=== PATIENT | female | born 1990 | race Caucasian/White ===

== ENCOUNTER 2024-10-15 18:32 | Inpatient (IN) | payer OTHER, SELFPAY ==
[2024-10-15] VITALS (71 sets, daily range): BP systolic 144–180; BP diastolic 30–114; PULSE 40–105; RESP 13–22; TEMP 36.2–36.4; O2SAT 76–100; BMI 30.9
--- NOTE | 2024-10-15 19:35 | WPDANESEPPF ---
Anes - Initial Pre Proc Eval Date/Time: 10/15/24 19:35 Surgeon: Sadiq Noe MD Pre Op Diagnosis: leaking, contractions Patient Data Age: 33 Gender: F Height: Weight: Last Vital Signs Pulse Ox 100 10/15/24 19:28 Allergies Allergy/AdvReac Type Severity Reaction Status Date / Time codeine Allergy Unknown Verified 04/28/15 10:05 Penicillins Allergy Unknown Verified 04/28/15 10:05 Patient hx anesthesia problems: none Family hx anesthesia problems: none Results Review: All pre-operative results and documents have been reviewed as part of the pre-operative evaluation. [facility] Family History Family History Grandparent Family history of lupus erythematosus Family history of mental disorder Mother Family history of lupus erythematosus Family history of mental disorder Social History Social History Alcohol intake: never Anes - Eval Final PreProcedure Day of Procedure 10/15/24 19:35 Patient weight: obese Heart: regular rate and rhythm Lungs: decreased breath sounds Airway: Mallampati scale class II and special considerations poor dentition Neurological: alert and oriented ASA classification: III Emergent: yes Anesthetic plan: proceed Anesthesia type and monitoring: regional spinal and standard monitoring Results Review: All pre-operative results and documents have been reviewed as part of the pre-operative evaluation. Informed Consent: The patient's anesthetic plan and its attendant risks and benefits were discussed with the patient/family/POA. Questions were solicited and answers provided to the satisfaction of the patient/family/POA.
[2024-10-15 19:45] LABS: Hematocrit 34.7 % (37.0-47.0); Hemoglobin 11.3 g/dL (12.0-15.0); Mean Corpuscular HGB Conc 32.6 g/dl (32-36); Mean Corpuscular Hemoglobin 26.4 pg (26-34); Mean Corpuscular Volume 81.1 fl (80-100); Mean Platelet Volume 10.6 fl (7.4-10.4); Platelet Count Result 313 k/mm3 (150-375); Red Blood Count 4.28 M/mm3 (4.2-5.4); Red Cell Distribution Width 13.9 % (11.5-14.5); White Blood Count 17.7 K/mm3 (4.5-10.0)
[2024-10-15] MEDS: ceFAZolin 2 GM/D5W 50 ML 2 GM/50 ML BAG IVPB (19:48)
[2024-10-15] MEDS: FAMOTIDINE 20 MG/2 ML VIAL IV PUSH (19:50)
[2024-10-15] MEDS: ONDANSETRON INJ 4 MG/2 ML VIAL IV PUSH (19:50)
[2024-10-15 19:55] LABS: INR 0.9
[2024-10-15 19:56] LABS: Partial Thromboplastin Time 27.8 Seconds (22.3-36.8)
[2024-10-15 19:57] LABS: Fibrinogen 548 mg/dl (215-510)
[2024-10-15 20:00] LABS: D Dimer 1.33 ug/mL (<0.48)
[2024-10-15 20:34] LABS: Hepatitis B Surface Antigen Negative (Negative); Rubella IgG Antibody 81.1 IU/ML
[2024-10-15 20:39] LABS: HIV 1/2 Ab P24 Ag Result Negative (Negative)
--- NOTE | 2024-10-15 20:54 | PM.IMHP ---
H&P: HPI History of Present Illness Date/Time: 10/15/24 20:54 Chief Complaint: Leaking Narrative: 33 y/o unknown gestation, no care presented to L and D with c/o LOF. ROM plus pos. She has had 2 prior c-sections and is currently on Saboxone. No records available. tracing without accels initially when she presented. BP 150/90. tracing with 9 min bradycardia and then repetitive moderate to severe variables while being on hands/knee position. Cervix changed to 2/90%. PIH and abruption labs ordered. She was recommended for stat section due to nonreassuring tracing. She denied severe headache or scotomata or RUQ pain. None of her children reside with her. Review of Systems Review of Systems: All systems reviewed & are unremarkable except as noted in HPI and below Constitutional: Constitutional: Reports no additional constitutional complaints and Denies headache(s) Eyes: Eyes: Denies spots in vision ENT: Reports system reviewed and no additional complaints, except as documented and Denies headache(s) Cardiovascular: Cardiovascular: Denies chest pain and Denies dyspnea Respiratory: Respiratory: Denies dyspnea Gastrointestinal: Gastrointestinal: Reports no additional gastrointestinal complaints Genitourinary: Genitourinary: Reports amenorrhea Musculoskeletal: Musculoskeletal: Reports no additional musculoskeletal complaints Integumentary/Breasts: Skin/Breast: Denies breast mass and Denies rash Neurologic: Denies headache(s) Psychiatric: Psychiatric: Reports no additional psychiatric complaints [facility] Family History Family History Grandparent Family history of lupus erythematosus Family history of mental disorder Mother Family history of lupus erythematosus Family history of mental disorder Social History Social History Alcohol intake: never Meds Home Medications and Allergies Allergies Allergy/AdvReac Type Severity Reaction Status Date / Time codeine Allergy Unknown Verified 04/28/15 10:05 Penicillins Allergy Unknown Verified 04/28/15 10:05 Vital Signs Vital Signs - 24 hr 10/15/24 19:20 10/15/24 19:25 10/15/24 19:28 Pulse Oximetry 97 98 100 10/15/24 19:37 10/15/24 19:41 10/15/24 19:46 Pulse Oximetry 100 100 99 Exam Const: General: no acute distress Eyes: General: appearance normal, both eyes and all related structures Resp: Effort & Inspection: normal respiratory effort Cardio: Rate: regular rate GI: Other: Gravid no fundal tenderness no right upper quadrant pain Skin: General skin exam: no rashes or lesions noted Neuro: Cognition (Neuro): normal cognition Extrem: General: normal to inspection Psych: Mental Status: mental status grossly normal H&P: Results Labs Labs: Short CBC 10/15/24 10/15/24 10/15/24 Range/Units 19:27 19:27 19:27 WBC 17.7 H Cancelled (4.5-10.0) K/mm3 Hgb 11.3 L Cancelled (12.0-15.0) g/dL Hct 34.7 L (37.0-47.0) % Plt Count (150-375) k/mm3 10/15/24 10/15/24 Range/Units 19: 19:27 WBC (4.5-10.0) K/mm3 Hgb (12.0-15.0) g/dL Hct Cancelled (37.0-47.0) % Plt Count 313 Cancelled (150-375) k/mm3 Assessment and Plan Assessment and plan (1) distress: Status: Acute Assessment and Plan: Recommend emergency section. Discussed risk benefit of repeat section and risk of continuing . She agreed to emergency cesrean section. (2) No care in current : Code(s): O09.30 - Supervision of with insufficient care, unspecified trimester Status: Acute Assessment and Plan: Will obtain new ob labs/abruption labs/UDS. (3) Elevated blood pressure reading: Code(s): R03.0 - Elevated blood-pressure reading, without diagnosis of hypertension Status: Acute Assessment and Plan: [facility] labs. Will continue to monitor and await lab results.
[2024-10-15 21:06] LABS: Magnesium 1.6 mg/dL (1.6-2.3)
--- NOTE | 2024-10-15 21:12 | W.PM.OBCSD ---
OB - Delivery Note Procedure Delivery date: 10/15/24 Pre-op diagnosis: No Care, Non-Reassuring Status and Other (Elevted blood pressures) Post-op Diagnosis: Same Delivery monitor: External FHT Prior to decision for section, [facility] labor guidelines were considered and discussed with the patient and staff. Decision made to proceed with the section.: Yes Procedure Performed: Repeat Surgeon: Sadiq Noe MD Anesthesia type: General Description of Procedure/Findings: male apgars 8,9, thick meconium, normal uterus fallopian tubes and ovaries. After informed consent, risks and benefits of the procedure was discussed with the patient. The patient was taken to the operating room where she was placed in the dorsal lithotomy position. FHT 120, variables. She was prepped and draped in sterile fashion. She was intubated and a Pfannenstiel skin incision was made with a scalpel and carried through to the underlying layer of fascia. The fascia was then nicked in the midline, extending bilaterally. The fascia was dissected off the rectus muscles bluntly and sharply, superiorly and inferiorly. The rectus muscles were in the midline, and peritoneum was identified and entered bluntly. The pelvic organs were visualized. The bladder blade was then inserted. The vesicouterine peritoneum was identified and entered and the bladder flap was created digitally. The low transverse uterine incision was then made with the scalpel and large amount of thick amniotic fluid noted when amniotic sac entered. The incision was extended with bilateral index fingers in a crescent-shaped fashion. The head was delivered and the rest of the was delivered The nose and mouth suctioned. The cord was clamped twice and cut. The infant was then handed off to the awaiting pediatric staff. The placenta was then delivered manually. The uterine cavity was sponge curetted. The uterus was then exteriorized. The uterine incision was then closed with 0 vicryl in a running locked fashion. A second layer of 0 vicryl was used in an imbricating fashion. Hemostasis noted. Posterior cul de sac irrigated and cleared of debris. The uterus was then returned to the abdomen. Bilateral gutters were cleared off all clots and debris. The uterine incision was noted to be hemostatic. Interceed placed on uterine incision . The muscle bellies were inspected and noted to be hemostatic. The subfascial layer was noted to be hemostatic, and the fascia was closed with 0 Vicryl in a running fashion x2. The subcutaneous layer was irrigated and then approximated with 3-0 Vicryl in a subcutaneous fashion. The skin was closed with selvin. Dermabond applied at incision. Miraplex dressing. All instruments, needle, and lap counts were correct x3. The patient was taken to the recovery room in stable condition. Specimen: Yes (placenta and cord) Estimated Blood Loss: 1,045 Drains: No Packing: No Pathology: Yes (placenta and cord) Complications: No immediate complications Condition: Stable Disposition: [place] Baby Date of : 10/15/24 Infant gender: Male presentation: vertex Placenta delivery description: Manual Removal Cord Vessel Description: 3 Vessels score one minute: 8 score five minutes: 9
[2024-10-15 21:22] LABS: Syphilis IgG/IgM Antibody Negative (Negative)
--- NOTE | 2024-10-15 21:36 | PC.NURSE ---
Dr. Noe at nurses station, updated on severe blood pressures, orders received to administer 4 g magnesium bolus and 2 g maintenance dose for twenty-four hours.
--- NOTE | 2024-10-15 21:45 | PC.NURSE ---
Dr. Noe at nurses station, update on blood pressures, orders received to hold magnesium and administer 20 mg IV labetalol.
[2024-10-15] MEDS: OXYTOCIN 30 UNITS/NS 500 ML 30 UNITS/500 ML BAG 125 UNITS IV CONT (21:46)
[2024-10-15] MEDS: LABETALOL HCL INJ 100 MG/20 ML VIAL 20 MG IV PUSH (21:48)
[2024-10-15] MEDS: HYDROmorphone HCL INJ (*CRX) 1 MG/ML SYR 0.5 MG IV PUSH ×2 (21:50→22:14)
--- NOTE | 2024-10-15 22:08 | PM.OBPNVD ---
OB - PN: Subj Subjective Date/time seen: 10/15/24 22:08 Interval history: Persistant severe range blood pressures. Decreased initially with Labetolol and then returned severe range. Pain control is an issue with her saboxone use. 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 Will start Magnesium for seizure prophylaxis for severe range blood pressure. Labs reviewed normal. P/C ratio pending. OB - PN: Obj Data Labs 10/15/24 19:27 Labs: Laboratory Results - last 24 hr 10/15/24 10/15/24 10/15/24 19:26 19:27 19:27 WBC 17.7 H Cancelled RBC 4.28 Hgb Hct MCV MCH MCHC RDW Plt Count MPV Immature Gran % (Auto) Neut % (Auto) Lymph % (Auto) [place] % (Auto) Eos % (Auto) Baso % (Auto) Lymph # (Auto) [place] # (Auto) Eos # (Auto) Baso # (Auto) Abs Immat Gran (auto) Absolute Neuts (auto) Absolute Nucleated RBC Nucleated RBC % % Immature Plt Fraction PT INR APTT Fibrinogen D-Dimer Magnesium Syphilis IgG/IgM Ab Negative Hep Bs Antigen HIV 1&2 Ab/P24 Ag 4thGn Rubella IgG Antibody Blood Type O Positive Antibody Screen Negative 10/15/24 10/15/24 10/15/24 19: 19:27 19:27 WBC RBC Cancelled Hgb 11.3 L Cancelled Hct 34.7 L Cancelled MCV 81.1 MCH MCHC RDW Plt Count MPV Immature Gran % (Auto) Neut % (Auto) Lymph % (Auto) [place] % (Auto) Eos % (Auto) Baso % (Auto) Lymph # (Auto) [place] # (Auto) Eos # (Auto) Baso # (Auto) Abs Immat Gran (auto) Absolute Neuts (auto) Absolute Nucleated RBC Nucleated RBC % % Immature Plt Fraction PT INR APTT Fibrinogen D-Dimer Magnesium Syphilis IgG/IgM Ab Hep Bs Antigen HIV 1&2 Ab/P24 Ag 4thGn Rubella IgG Antibody Blood Type Antibody Screen 10/15/24 10/15/24 10/15/24 19:27 19:27 19:27 WBC RBC Hgb Hct MCV Cancelled MCH 26.4 Cancelled MCHC 32.6 Cancelled RDW 13.9 Plt Count MPV Immature Gran % (Auto) Neut % (Auto) Lymph % (Auto) [place] % (Auto) Eos % (Auto) Baso % (Auto) Lymph # (Auto) [place] # (Auto) Eos # (Auto) Baso # (Auto) Abs Immat Gran (auto) Absolute Neuts (auto) Absolute Nucleated RBC Nucleated RBC % % Immature Plt Fraction PT INR APTT Fibrinogen D-Dimer Magnesium Syphilis IgG/IgM Ab Hep Bs Antigen HIV 1&2 Ab/P24 Ag 4thGn Rubella IgG Antibody Blood Type Antibody Screen 10/15/24 10/15/24 10/15/24 19:27 19:27 19:27 WBC RBC Hgb Hct MCV MCH MCHC RDW Cancelled Plt Count 313 Cancelled MPV 10.6 H Cancelled Immature Gran % (Auto) Cancelled Neut % (Auto) Cancelled Lymph % (Auto) Cancelled [place] % (Auto) Cancelled Eos % (Auto) Cancelled Baso % (Auto) Cancelled Lymph # (Auto) Cancelled [place] # (Auto) Cancelled Eos # (Auto) Cancelled Baso # (Auto) Cancelled Abs Immat Gran (auto) Cancelled Absolute Neuts (auto) Cancelled Absolute Nucleated RBC Cancelled Nucleated RBC % Cancelled % Immature Plt Fraction Cancelled PT 13.0 INR 0.9 APTT 27.8 Fibrinogen 548 H D-Dimer 1.33 H Magnesium 1.6 Syphilis IgG/IgM Ab Hep Bs Antigen Negative HIV 1&2 Ab/P24 Ag 4thGn Negative Rubella IgG Antibody 81.1 Blood Type Antibody Screen OB - PN A/P Time Spent With Patient Time: Total time spent is greater than 50% in coordination of care (as documented) at patient's floor/unit and/or counseling patient:
[2024-10-15] MEDS: MAGNESIUM SULF 4 GM/WATER100ML 4 GM/100 ML BAG IVPB (22:23)
[2024-10-15] MEDS: LACTATED RINGERS 1,000 ML 75 ML IV CONT (22:25)
[2024-10-15] MEDS: MAGNESIUM SULF 20GM/WATER500ML 500 ML 50 MG IV CONT (22:55)
[2024-10-15] MEDS: LORazepam INJ (*CRX) 2 MG/ML VIAL 1 MG IV PUSH (23:25)
--- NOTE | 2024-10-15 23:31 | PC.NURSE ---
2310- RN contacted MD in regards to pts request for anxiety medication. Orders received.
[2024-10-16] VITALS (63 sets, daily range): BP systolic 121–166; BP diastolic 75–130; PULSE 43–106; RESP 12–22; TEMP 36.2–36.9; O2SAT 89–99; BMI 30.2
[2024-10-16 03:00] LABS: Barbiturate Screen Urine Negative (Negative); Benzodiazepines Screen Urine Positive (Negative); Cannabinoid Screen Urine Negative (Negative); Cocaine Screen Urine Negative (Negative); Methadone Screen Urine Negative (Negative); Opiate Screen Urine Positive (Negative); Phencyclidine Screen Urine Negative (Negative)
--- NOTE | 2024-10-16 03:07 | OBPPTRN ---
Patient transferred to post room # 286 via stretcher. Support person present. Oriented to unit, room, information board, rooming in, admission packet and security measures. Patient verbalizes understanding.
--- NOTE | 2024-10-16 03:07 | OBPPTRN ---
Patient transferred to post room # via ( ). Support person present. Oriented to unit, room, information board, rooming in, admission packet and security measures. Patient verbalizes understanding.
[2024-10-16 03:23] LABS: Amphetamine Screen Urine Positive (Negative)
[2024-10-16] MEDS: ACETAMINOPHEN 325 MG TABLET 650 MG PO (03:30)
[2024-10-16] MEDS: KETOROLAC 15 MG/ML VIAL (*BKC) IV PUSH ×4 (03:30→22:55)
[2024-10-16] MEDS: LIDOCAINE 5% PATCH 1 PATCH TRANSDERM (03:35)
[2024-10-16] MEDS: ONDANSETRON INJ 4 MG/2 ML VIAL IV PUSH (04:00)
[2024-10-16] MEDS: HYDROmorphon 0.2MG/ML PCA(*CRX 6 MG/30 ML PCA.VIAL 1.5 MG IV CONT (09:00)
--- NOTE | 2024-10-16 09:03 | PM.OBPNVD ---
OB - PN: Subj Subjective Date/time seen: 10/16/24 09:03 Interval history: She is sleeping, arousable. She denied pain. She reports flatus. Denies headache or scotomata. OB - PN: Obj Data Labs 10/15/24 19:27 10/16/24 02:37 Labs: Laboratory Results - last 24 hr 10/15/24 10/15/24 10/15/24 19:26 19:27 19:27 WBC 17.7 H Cancelled RBC 4.28 Hgb Hct MCV MCH MCHC RDW Plt Count MPV Immature Gran % (Auto) Neut % (Auto) Lymph % (Auto) Wilcox % (Auto) Eos % (Auto) Baso % (Auto) Lymph # (Auto) Wilcox # (Auto) Eos # (Auto) Baso # (Auto) Abs Immat Gran (auto) Absolute Neuts (auto) Absolute Nucleated RBC Nucleated RBC % % Immature Plt Fraction PT INR APTT Fibrinogen D-Dimer Sodium Potassium Chloride Carbon Dioxide Anion Gap BUN Creatinine Estim Creat Clear Calc Estimated GFR Glucose Uric Acid Calcium Magnesium Total Bilirubin AST ALT Alkaline Phosphatase Total Protein Albumin Urine Opiates Screen Urine Methadone Screen Ur Barbiturates Screen Ur Phencyclidine Scrn Ur Amphetamine Screen U Benzodiazepines Scrn Urine Cocaine Screen U Cannabinoids Screen Syphilis IgG/IgM Ab Negative Hep Bs Antigen HIV 1&2 Ab/P24 Ag 4thGn Rubella IgG Antibody Blood Type O Positive Antibody Screen Negative 10/15/24 10/15/24 10/15/24 19:27 19:27 19:27 WBC RBC Cancelled Hgb 11.3 L Cancelled Hct 34.7 L Cancelled MCV 81.1 MCH MCHC RDW Plt Count MPV Immature Gran % (Auto) Neut % (Auto) Lymph % (Auto) Wilcox % (Auto) Eos % (Auto) Baso % (Auto) Lymph # (Auto) Wilcox # (Auto) Eos # (Auto) Baso # (Auto) Abs Immat Gran (auto) Absolute Neuts (auto) Absolute Nucleated RBC Nucleated RBC % % Immature Plt Fraction PT INR APTT Fibrinogen D-Dimer Sodium Potassium Chloride Carbon Dioxide Anion Gap BUN Creatinine Estim Creat Clear Calc Estimated GFR Glucose Uric Acid Calcium Magnesium Total Bilirubin AST ALT Alkaline Phosphatase Total Protein Albumin Urine Opiates Screen Urine Methadone Screen Ur Barbiturates Screen Ur Phencyclidine Scrn Ur Amphetamine Screen U Benzodiazepines Scrn Urine Cocaine Screen U Cannabinoids Screen Syphilis IgG/IgM Ab Hep Bs Antigen HIV 1&2 Ab/P24 Ag 4thGn Rubella IgG Antibody Blood Type Antibody Screen 10/15/24 10/15/24 10/15/24 19:27 19:27 19:27 WBC RBC Hgb Hct MCV Cancelled MCH 26.4 Cancelled MCHC 32.6 Cancelled RDW 13.9 Plt Count MPV Immature Gran % (Auto) Neut % (Auto) Lymph % (Auto) Wilcox % (Auto) Eos % (Auto) Baso % (Auto) Lymph # (Auto) Wilcox # (Auto) Eos # (Auto) Baso # (Auto) Abs Immat Gran (auto) Absolute Neuts (auto) Absolute Nucleated RBC Nucleated RBC % % Immature Plt Fraction PT INR APTT Fibrinogen D-Dimer Sodium Potassium Chloride Carbon Dioxide Anion Gap BUN Creatinine Estim Creat Clear Calc Estimated GFR Glucose Uric Acid Calcium Magnesium Total Bilirubin AST ALT Alkaline Phosphatase Total Protein Albumin Urine Opiates Screen Urine Methadone Screen Ur Barbiturates Screen Ur Phencyclidine Scrn Ur Amphetamine Screen U Benzodiazepines Scrn Urine Cocaine Screen U Cannabinoids Screen Syphilis IgG/IgM Ab Hep Bs Antigen HIV 1&2 Ab/P24 Ag 4thGn Rubella IgG Antibody Blood Type Antibody Screen 10/15/24 10/15/24 10/15/24 19:27 19:27 19:27 WBC RBC Hgb Hct MCV MCH MCHC RDW Cancelled Plt Count 313 Cancelled MPV 10.6 H Cancelled Immature Gran % (Auto) Cancelled Neut % (Auto) Cancelled Lymph % (Auto) Cancelled Wilcox % (Auto) Cancelled Eos % (Auto) Cancelled Baso % (Auto) Cancelled Lymph # (Auto) Cancelled Wilcox # (Auto) Cancelled Eos # (Auto) Cancelled Baso # (Auto) Cancelled Abs Immat Gran (auto) Cancelled Absolute Neuts (auto) Cancelled Absolute Nucleated RBC Cancelled Nucleated RBC % Cancelled % Immature Plt Fraction Cancelled PT 13.0 INR 0.9 APTT 27.8 Fibrinogen 548 H D-Dimer 1.33 H Sodium Potassium Chloride Carbon Dioxide Anion Gap BUN Creatinine Estim Creat Clear Calc Estimated GFR Glucose Uric Acid Calcium Magnesium 1.6 Total Bilirubin AST ALT Alkaline Phosphatase Total Protein Albumin Urine Opiates Screen Urine Methadone Screen Ur Barbiturates Screen Ur Phencyclidine Scrn Ur Amphetamine Screen U Benzodiazepines Scrn Urine Cocaine Screen U Cannabinoids Screen Syphilis IgG/IgM Ab Hep Bs Antigen Negative HIV 1&2 Ab/P24 Ag 4thGn Negative Rubella IgG Antibody 81.1 Blood Type Antibody Screen 10/16/24 10/16/24 10/16/24 02:37 02:37 02:37 WBC Cancelled Cancelled RBC Cancelled Cancelled Hgb Cancelled Hct MCV MCH MCHC RDW Plt Count MPV Immature Gran % (Auto) Neut % (Auto) Lymph % (Auto) Wilcox % (Auto) Eos % (Auto) Baso % (Auto) Lymph # (Auto) Wilcox # (Auto) Eos # (Auto) Baso # (Auto) Abs Immat Gran (auto) Absolute Neuts (auto) Absolute Nucleated RBC Nucleated RBC % % Immature Plt Fraction PT INR APTT Fibrinogen D-Dimer Sodium Potassium Chloride Carbon Dioxide Anion Gap BUN Creatinine Estim Creat Clear Calc Estimated GFR Glucose Uric Acid Calcium Magnesium Total Bilirubin AST ALT Alkaline Phosphatase Total Protein Albumin Urine Opiates Screen Urine Methadone Screen Ur Barbiturates Screen Ur Phencyclidine Scrn Ur Amphetamine Screen U Benzodiazepines Scrn Urine Cocaine Screen U Cannabinoids Screen Syphilis IgG/IgM Ab Hep Bs Antigen HIV 1&2 Ab/P24 Ag 4thGn Rubella IgG Antibody Blood Type Antibody Screen 10/16/24 10/16/24 10/16/24 02:37 02:37 02:37 WBC RBC Hgb Cancelled Hct Cancelled Cancelled MCV Cancelled Cancelled MCH Cancelled MCHC RDW Plt Count MPV Immature Gran % (Auto) Neut % (Auto) Lymph % (Auto) Wilcox % (Auto) Eos % (Auto) Baso % (Auto) Lymph # (Auto) Wilcox # (Auto) Eos # (Auto) Baso # (Auto) Abs Immat Gran (auto) Absolute Neuts (auto) Absolute Nucleated RBC Nucleated RBC % % Immature Plt Fraction PT INR APTT Fibrinogen D-Dimer Sodium Potassium Chloride Carbon Dioxide Anion Gap BUN Creatinine Estim Creat Clear Calc Estimated GFR Glucose Uric Acid Calcium Magnesium Total Bilirubin AST ALT Alkaline Phosphatase Total Protein Albumin Urine Opiates Screen Urine Methadone Screen Ur Barbiturates Screen Ur Phencyclidine Scrn Ur Amphetamine Screen U Benzodiazepines Scrn Urine Cocaine Screen U Cannabinoids Screen Syphilis IgG/IgM Ab Hep Bs Antigen HIV 1&2 Ab/P24 Ag 4thGn Rubella IgG Antibody Blood Type Antibody Screen 10/16/24 10/16/24 10/16/24 02:37 02:37 02:37 WBC RBC Hgb Hct MCV MCH Cancelled MCHC Cancelled Cancelled RDW Cancelled Cancelled Plt Count Cancelled MPV Immature Gran % (Auto) Neut % (Auto) Lymph % (Auto) Wilcox % (Auto) Eos % (Auto) Baso % (Auto) Lymph # (Auto) Wilcox # (Auto) Eos # (Auto) Baso # (Auto) Abs Immat Gran (auto) Absolute Neuts (auto) Absolute Nucleated RBC Nucleated RBC % % Immature Plt Fraction PT INR APTT Fibrinogen D-Dimer Sodium Potassium Chloride Carbon Dioxide Anion Gap BUN Creatinine Estim Creat Clear Calc Estimated GFR Glucose Uric Acid Calcium Magnesium Total Bilirubin AST ALT Alkaline Phosphatase Total Protein Albumin Urine Opiates Screen Urine Methadone Screen Ur Barbiturates Screen Ur Phencyclidine Scrn Ur Amphetamine Screen U Benzodiazepines Scrn Urine Cocaine Screen U Cannabinoids Screen Syphilis IgG/IgM Ab Hep Bs Antigen HIV 1&2 Ab/P24 Ag 4thGn Rubella IgG Antibody Blood Type Antibody Screen 10/16/24 10/16/24 10/16/24 02:37 02:37 02:37 WBC RBC Hgb Hct MCV MCH MCHC RDW Plt Count Cancelled MPV Cancelled Cancelled Immature Gran % (Auto) Cancelled Cancelled Neut % (Auto) Cancelled Lymph % (Auto) Wilcox % (Auto) Eos % (Auto) Baso % (Auto) Lymph # (Auto) Wilcox # (Auto) Eos # (Auto) Baso # (Auto) Abs Immat Gran (auto) Absolute Neuts (auto) Absolute Nucleated RBC Nucleated RBC % % Immature Plt Fraction PT INR APTT Fibrinogen D-Dimer Sodium Potassium Chloride Carbon Dioxide Anion Gap BUN Creatinine Estim Creat Clear Calc Estimated GFR Glucose Uric Acid Calcium Magnesium Total Bilirubin AST ALT Alkaline Phosphatase Total Protein Albumin Urine Opiates Screen Urine Methadone Screen Ur Barbiturates Screen Ur Phencyclidine Scrn Ur Amphetamine Screen U Benzodiazepines Scrn Urine Cocaine Screen U Cannabinoids Screen Syphilis IgG/IgM Ab Hep Bs Antigen HIV 1&2 Ab/P24 Ag 4thGn Rubella IgG Antibody Blood Type Antibody Screen 10/16/24 10/16/24 10/16/24 02:37 02:37 02:37 WBC RBC Hgb Hct MCV MCH MCHC RDW Plt Count MPV Immature Gran % (Auto) Neut % (Auto) Cancelled Lymph % (Auto) Cancelled Cancelled Wilcox % (Auto) Cancelled Cancelled Eos % (Auto) Cancelled Baso % (Auto) Lymph # (Auto) Wilcox # (Auto) Eos # (Auto) Baso # (Auto) Abs Immat Gran (auto) Absolute Neuts (auto) Absolute Nucleated RBC Nucleated RBC % % Immature Plt Fraction PT INR APTT Fibrinogen D-Dimer Sodium Potassium Chloride Carbon Dioxide Anion Gap BUN Creatinine Estim Creat Clear Calc Estimated GFR Glucose Uric Acid Calcium Magnesium Total Bilirubin AST ALT Alkaline Phosphatase Total Protein Albumin Urine Opiates Screen Urine Methadone Screen Ur Barbiturates Screen Ur Phencyclidine Scrn Ur Amphetamine Screen U Benzodiazepines Scrn Urine Cocaine Screen U Cannabinoids Screen Syphilis IgG/IgM Ab Hep Bs Antigen HIV 1&2 Ab/P24 Ag 4thGn Rubella IgG Antibody Blood Type Antibody Screen 10/16/24 10/16/24 10/16/24 02:37 02:37 02:37 WBC RBC Hgb Hct MCV MCH MCHC RDW Plt Count MPV Immature Gran % (Auto) Neut % (Auto) Lymph % (Auto) Wilcox % (Auto) Eos % (Auto) Cancelled Baso % (Auto) Cancelled Cancelled Lymph # (Auto) Cancelled Cancelled Wilcox # (Auto) Cancelled Eos # (Auto) Baso # (Auto) Abs Immat Gran (auto) Absolute Neuts (auto) Absolute Nucleated RBC Nucleated RBC % % Immature Plt Fraction PT INR APTT Fibrinogen D-Dimer Sodium Potassium Chloride Carbon Dioxide Anion Gap BUN Creatinine Estim Creat Clear Calc Estimated GFR Glucose Uric Acid Calcium Magnesium Total Bilirubin AST ALT Alkaline Phosphatase Total Protein Albumin Urine Opiates Screen Urine Methadone Screen Ur Barbiturates Screen Ur Phencyclidine Scrn Ur Amphetamine Screen U Benzodiazepines Scrn Urine Cocaine Screen U Cannabinoids Screen Syphilis IgG/IgM Ab Hep Bs Antigen HIV 1&2 Ab/P24 Ag 4thGn Rubella IgG Antibody Blood Type Antibody Screen 10/16/24 10/16/24 10/16/24 02:37 02:37 02:37 WBC RBC Hgb Hct MCV MCH MCHC RDW Plt Count MPV Immature Gran % (Auto) Neut % (Auto) Lymph % (Auto) Wilcox % (Auto) Eos % (Auto) Baso % (Auto) Lymph # (Auto) Wilcox # (Auto) Cancelled Eos # (Auto) Cancelled Cancelled Baso # (Auto) Cancelled Cancelled Abs Immat Gran (auto) Cancelled Absolute Neuts (auto) Absolute Nucleated RBC Nucleated RBC % % Immature Plt Fraction PT INR APTT Fibrinogen D-Dimer Sodium Potassium Chloride Carbon Dioxide Anion Gap BUN Creatinine Estim Creat Clear Calc Estimated GFR Glucose Uric Acid Calcium Magnesium Total Bilirubin AST ALT Alkaline Phosphatase Total Protein Albumin Urine Opiates Screen Urine Methadone Screen Ur Barbiturates Screen Ur Phencyclidine Scrn Ur Amphetamine Screen U Benzodiazepines Scrn Urine Cocaine Screen U Cannabinoids Screen Syphilis IgG/IgM Ab Hep Bs Antigen HIV 1&2 Ab/P24 Ag 4thGn Rubella IgG Antibody Blood Type Antibody Screen 10/16/24 10/16/24 10/16/24 02:37 02:37 02:37 WBC RBC Hgb Hct MCV MCH MCHC RDW Plt Count MPV Immature Gran % (Auto) Neut % (Auto) Lymph % (Auto) Wilcox % (Auto) Eos % (Auto) Baso % (Auto) Lymph # (Auto) Wilcox # (Auto) Eos # (Auto) Baso # (Auto) Abs Immat Gran (auto) Cancelled Absolute Neuts (auto) Cancelled Cancelled Absolute Nucleated RBC Cancelled Cancelled Nucleated RBC % Cancelled % Immature Plt Fraction PT INR APTT Fibrinogen D-Dimer Sodium Potassium Chloride Carbon Dioxide Anion Gap BUN Creatinine Estim Creat Clear Calc Estimated GFR Glucose Uric Acid Calcium Magnesium Total Bilirubin AST ALT Alkaline Phosphatase Total Protein Albumin Urine Opiates Screen Urine Methadone Screen Ur Barbiturates Screen Ur Phencyclidine Scrn Ur Amphetamine Screen U Benzodiazepines Scrn Urine Cocaine Screen U Cannabinoids Screen Syphilis IgG/IgM Ab Hep Bs Antigen HIV 1&2 Ab/P24 Ag 4thGn Rubella IgG Antibody Blood Type Antibody Screen 10/16/24 10/16/24 02:37 02:37 WBC RBC Hgb Hct MCV MCH MCHC RDW Plt Count MPV Immature Gran % (Auto) Neut % (Auto) Lymph % (Auto) Wilcox % (Auto) Eos % (Auto) Baso % (Auto) Lymph # (Auto) Wilcox # (Auto) Eos # (Auto) Baso # (Auto) Abs Immat Gran (auto) Absolute Neuts (auto) Absolute Nucleated RBC Nucleated RBC % Cancelled % Immature Plt Fraction Cancelled Cancelled PT INR APTT Fibrinogen D-Dimer Sodium Cancelled Potassium Cancelled Chloride Cancelled Carbon Dioxide Cancelled Anion Gap Cancelled BUN Cancelled Creatinine Cancelled Estim Creat Clear Calc Cancelled Estimated GFR Cancelled Glucose Cancelled Uric Acid Cancelled Calcium Cancelled Magnesium Total Bilirubin Cancelled AST Cancelled ALT Cancelled Alkaline Phosphatase Cancelled Total Protein Cancelled Albumin Cancelled Urine Opiates Screen Positive A Urine Methadone Screen Negative Ur Barbiturates Screen Negative Ur Phencyclidine Scrn Negative Ur Amphetamine Screen Positive A U Benzodiazepines Scrn Positive A Urine Cocaine Screen Negative U Cannabinoids Screen Negative Syphilis IgG/IgM Ab Hep Bs Antigen HIV 1&2 Ab/P24 Ag 4thGn Rubella IgG Antibody Blood Type Antibody Screen OB - PN A/P Assessment and Plan (1) Delivery by section: Status: Acute Assessment and Plan: POD1. She was encouraged to keep her PCS on. She took them off. Attempting pain control. She is sleeping. She is threatening leaving AMA.She is refusing labs. Informed her of risk of and stroke, seizures if she leaves. Will continue Dilaudid. Will bridge the POURING CRANE OPERATOR dose with oral and plan on discontinuing POURING CRANE OPERATOR. (2) Gestational hypertension: Code(s): O13.9 - Gestational [-induced] hypertension without significant proteinuria, unspecified trimester Status: Acute Assessment and Plan: Blood pressures labile. Continue Magnesium for 24 hour. Will start Labetolol. She has Ativan ordered. (3) Drug abuse: Code(s): F19.10 - Other psychoactive substance abuse, uncomplicated Status: Acute Assessment and Plan: UDS pos for meth and benzo. Social service consult. Time Spent With Patient Time: Total time spent is greater than 50% in coordination of care (as documented) at patient's floor/unit and/or counseling patient: Exam Const: General: comfortable and no acute distress Resp: Effort & Inspection: normal respiratory effort Auscultation: clear to auscultation bilaterally Cardio: Rate: regular rate GI: Other: hypoactive bowel sounds, incision intact, very small area of soiling on right of dressing Psych: Mental Status: mental status grossly normal Affect: normal affect
[2024-10-16] MEDS: MAGNESIUM SULF 20GM/WATER500ML 500 ML 50 MG IV CONT ×2 (09:09→19:01)
--- NOTE | 2024-10-16 09:43 | PC.NURSE ---
0720: RN went into room to turn on CALENDER ROLL OPERATOR with fellow RN, patient found to be sound asleep. 0725: RN notified MD Noe that patient was sleeping soundly and asked if pain pump needed to be continued. MD said she would arrive on unit shortly. 0810: MD arrived on unit and after further discussion decided to dc CALENDER ROLL OPERATOR and explained she would order PO pain medication for patient. 0820: This RN went in to check on patient and ask about pain medication and bring back in to be with patient, patient explained she was in alot of pain and was found to be moaning and crawling up the bed. Mother of pt explained she would be leaving and informed this RN to take infant back to nursery. 0830: Lab arrived to draw pts blood, while this RN prepared pain medication for patient. Patient refused to allow phlebotomy draw her blood and told maranda that she would like AMA papers. Tech informed this RN. 0835: This RN returned to room with pain medication of tylenol and toradol while waiting for oral medications to be ordered by physician. Patient refused tylenol and toradol and all other meds and again asked for AMA papers. This RN informed patient that I would speak to the doctor. 0840: informed of pts wishes to leave AMA. Physician went to speak with patient and patient continued to request AMA papers. 0845: This RN informed downstairs charge nurse of patient wishes. 0900: OB Combatant Diver Officer and downstairs charge nurse on unit to speak with patient and ask if she would stay if given the CALENDER ROLL OPERATOR. Patient agreed to stay if CALENDER ROLL OPERATOR was resumed. Combatant Diver Officer and charge started CALENDER ROLL OPERATOR and performed a mag assessment on patient.
--- NOTE | 2024-10-16 09:54 | WPDANLDPN2 ---
Anes-Prog Note L&D Date/Time: 10/16/24 09:54 Comfortable throughout: section Neuro status: Neuro function grossly intact. Cardiovascular status: normal Respiratory status: normal Airway patency: baseline Mental status: baseline Post-Op hydration status: normal (catheter intact) Vital Signs: Last Vital Signs Temp 36.4 C 10/16/24 07:50 Pulse 83 10/16/24 07:50 Resp 20 10/16/24 09:00 BP 121/75 10/16/24 07:50 Pulse Ox 96 10/16/24 07:50 O2 Del Method Room Air 10/16/24 03:30 Pain score (VAS): 8 I/O: Intake & Output 10/15/24 10/16/24 10/16/24 23:59 07:59 15:59 Intake Total 500 Output Total 1145 1400 Balance -1145 -1400 500 Post-procedural complaints: none Patient feedback: Patient satisfied with anesthetic care.
--- NOTE | 2024-10-16 09:54 | WPDANESPN ---
Anes - Prog Note Post-Op Date/Time: 10/16/24 09:54 Cardiovascular status: normal Respiratory status: normal Airway patency: baseline Mental status: baseline Post-Op hydration status: normal (catheter intact) Vital Signs: Last Vital Signs Temp 36.4 C 10/16/24 07:50 Pulse 83 10/16/24 07:50 Resp 20 10/16/24 09:00 BP 121/75 10/16/24 07:50 Pulse Ox 96 10/16/24 07:50 O2 Del Method Room Air 10/16/24 03:30 Pain Score (VAS): 8 incisional pain I/O: Intake & Output 10/15/24 10/16/24 10/16/24 23:59 07:59 15:59 Intake Total 500 Output Total 1145 1400 Balance -1145 -1400 500 Laboratory Tests 10/16/24 02:37 10/16/24 02:37 10/15/24 10/15/24 10/15/24 19:26 19:27 19:27 WBC 17.7 H Cancelled RBC 4.28 Hgb Hct MCV MCH MCHC RDW Plt Count MPV Immature Gran % (Auto) Neut % (Auto) Lymph % (Auto) [place] % (Auto) Eos % (Auto) Baso % (Auto) Lymph # (Auto) [place] # (Auto) Eos # (Auto) Baso # (Auto) Abs Immat Gran (auto) Absolute Neuts (auto) Absolute Nucleated RBC Nucleated RBC % % Immature Plt Fraction PT INR APTT Fibrinogen D-Dimer Sodium Potassium Chloride Carbon Dioxide Anion Gap BUN Creatinine Estim Creat Clear Calc Estimated GFR Glucose Uric Acid Calcium Magnesium Total Bilirubin AST ALT Alkaline Phosphatase Total Protein Albumin Urine Opiates Screen Urine Methadone Screen Ur Barbiturates Screen Ur Phencyclidine Scrn Ur Amphetamine Screen U Benzodiazepines Scrn Urine Cocaine Screen U Cannabinoids Screen Syphilis IgG/IgM Ab Negative Hep Bs Antigen HIV 1&2 Ab/P24 Ag 4thGn Rubella IgG Antibody Blood Type O Positive Antibody Screen Negative 10/15/24 10/15/24 10/15/24 19:27 19:27 19:27 WBC RBC Cancelled Hgb 11.3 L Cancelled Hct 34.7 L Cancelled MCV 81.1 MCH MCHC RDW Plt Count MPV Immature Gran % (Auto) Neut % (Auto) Lymph % (Auto) [place] % (Auto) Eos % (Auto) Baso % (Auto) Lymph # (Auto) [place] # (Auto) Eos # (Auto) Baso # (Auto) Abs Immat Gran (auto) Absolute Neuts (auto) Absolute Nucleated RBC Nucleated RBC % % Immature Plt Fraction PT INR APTT Fibrinogen D-Dimer Sodium Potassium Chloride Carbon Dioxide Anion Gap BUN Creatinine Estim Creat Clear Calc Estimated GFR Glucose Uric Acid Calcium Magnesium Total Bilirubin AST ALT Alkaline Phosphatase Total Protein Albumin Urine Opiates Screen Urine Methadone Screen Ur Barbiturates Screen Ur Phencyclidine Scrn Ur Amphetamine Screen U Benzodiazepines Scrn Urine Cocaine Screen U Cannabinoids Screen Syphilis IgG/IgM Ab Hep Bs Antigen HIV 1&2 Ab/P24 Ag 4thGn Rubella IgG Antibody Blood Type Antibody Screen 10/15/24 10/15/24 10/15/24 19:27 19:27 19:27 WBC RBC Hgb Hct MCV Cancelled MCH 26.4 Cancelled MCHC 32.6 Cancelled RDW 13.9 Plt Count MPV Immature Gran % (Auto) Neut % (Auto) Lymph % (Auto) [place] % (Auto) Eos % (Auto) Baso % (Auto) Lymph # (Auto) [place] # (Auto) Eos # (Auto) Baso # (Auto) Abs Immat Gran (auto) Absolute Neuts (auto) Absolute Nucleated RBC Nucleated RBC % % Immature Plt Fraction PT INR APTT Fibrinogen D-Dimer Sodium Potassium Chloride Carbon Dioxide Anion Gap BUN Creatinine Estim Creat Clear Calc Estimated GFR Glucose Uric Acid Calcium Magnesium Total Bilirubin AST ALT Alkaline Phosphatase Total Protein Albumin Urine Opiates Screen Urine Methadone Screen Ur Barbiturates Screen Ur Phencyclidine Scrn Ur Amphetamine Screen U Benzodiazepines Scrn Urine Cocaine Screen U Cannabinoids Screen Syphilis IgG/IgM Ab Hep Bs Antigen HIV 1&2 Ab/P24 Ag 4thGn Rubella IgG Antibody Blood Type Antibody Screen 10/15/24 10/15/24 10/15/24 19:27 19:27 19:27 WBC RBC Hgb Hct MCV MCH MCHC RDW Cancelled Plt Count 313 Cancelled MPV 10.6 H Cancelled Immature Gran % (Auto) Cancelled Neut % (Auto) Cancelled Lymph % (Auto) Cancelled [place] % (Auto) Cancelled Eos % (Auto) Cancelled Baso % (Auto) Cancelled Lymph # (Auto) Cancelled [place] # (Auto) Cancelled Eos # (Auto) Cancelled Baso # (Auto) Cancelled Abs Immat Gran (auto) Cancelled Absolute Neuts (auto) Cancelled Absolute Nucleated RBC Cancelled Nucleated RBC % Cancelled % Immature Plt Fraction Cancelled PT 13.0 INR 0.9 APTT 27.8 Fibrinogen 548 H D-Dimer 1.33 H Sodium Potassium Chloride Carbon Dioxide Anion Gap BUN Creatinine Estim Creat Clear Calc Estimated GFR Glucose Uric Acid Calcium Magnesium 1.6 Total Bilirubin AST ALT Alkaline Phosphatase Total Protein Albumin Urine Opiates Screen Urine Methadone Screen Ur Barbiturates Screen Ur Phencyclidine Scrn Ur Amphetamine Screen U Benzodiazepines Scrn Urine Cocaine Screen U Cannabinoids Screen Syphilis IgG/IgM Ab Hep Bs Antigen Negative HIV 1&2 Ab/P24 Ag 4thGn Negative Rubella IgG Antibody 81.1 Blood Type Antibody Screen 10/16/24 10/16/24 10/16/24 02:37 02:37 02:37 WBC Cancelled Cancelled RBC Cancelled Cancelled Hgb Cancelled Hct MCV MCH MCHC RDW Plt Count MPV Immature Gran % (Auto) Neut % (Auto) Lymph % (Auto) [place] % (Auto) Eos % (Auto) Baso % (Auto) Lymph # (Auto) [place] # (Auto) Eos # (Auto) Baso # (Auto) Abs Immat Gran (auto) Absolute Neuts (auto) Absolute Nucleated RBC Nucleated RBC % % Immature Plt Fraction PT INR APTT Fibrinogen D-Dimer Sodium Potassium Chloride Carbon Dioxide Anion Gap BUN Creatinine Estim Creat Clear Calc Estimated GFR Glucose Uric Acid Calcium Magnesium Total Bilirubin AST ALT Alkaline Phosphatase Total Protein Albumin Urine Opiates Screen Urine Methadone Screen Ur Barbiturates Screen Ur Phencyclidine Scrn Ur Amphetamine Screen U Benzodiazepines Scrn Urine Cocaine Screen U Cannabinoids Screen Syphilis IgG/IgM Ab Hep Bs Antigen HIV 1&2 Ab/P24 Ag 4thGn Rubella IgG Antibody Blood Type Antibody Screen 10/16/24 10/16/24 10/16/24 02:37 02:37 02:37 WBC RBC Hgb Cancelled Hct Cancelled Cancelled MCV Cancelled Cancelled MCH Cancelled MCHC RDW Plt Count MPV Immature Gran % (Auto) Neut % (Auto) Lymph % (Auto) [place] % (Auto) Eos % (Auto) Baso % (Auto) Lymph # (Auto) [place] # (Auto) Eos # (Auto) Baso # (Auto) Abs Immat Gran (auto) Absolute Neuts (auto) Absolute Nucleated RBC Nucleated RBC % % Immature Plt Fraction PT INR APTT Fibrinogen D-Dimer Sodium Potassium Chloride Carbon Dioxide Anion Gap BUN Creatinine Estim Creat Clear Calc Estimated GFR Glucose Uric Acid Calcium Magnesium Total Bilirubin AST ALT Alkaline Phosphatase Total Protein Albumin Urine Opiates Screen Urine Methadone Screen Ur Barbiturates Screen Ur Phencyclidine Scrn Ur Amphetamine Screen U Benzodiazepines Scrn Urine Cocaine Screen U Cannabinoids Screen Syphilis IgG/IgM Ab Hep Bs Antigen HIV 1&2 Ab/P24 Ag 4thGn Rubella IgG Antibody Blood Type Antibody Screen 10/16/24 10/16/24 10/16/24 02:37 02:37 02:37 WBC RBC Hgb Hct MCV MCH Cancelled MCHC Cancelled Cancelled RDW Cancelled Cancelled Plt Count Cancelled MPV Immature Gran % (Auto) Neut % (Auto) Lymph % (Auto) [place] % (Auto) Eos % (Auto) Baso % (Auto) Lymph # (Auto) [place] # (Auto) Eos # (Auto) Baso # (Auto) Abs Immat Gran (auto) Absolute Neuts (auto) Absolute Nucleated RBC Nucleated RBC % % Immature Plt Fraction PT INR APTT Fibrinogen D-Dimer Sodium Potassium Chloride Carbon Dioxide Anion Gap BUN Creatinine Estim Creat Clear Calc Estimated GFR Glucose Uric Acid Calcium Magnesium Total Bilirubin AST ALT Alkaline Phosphatase Total Protein Albumin Urine Opiates Screen Urine Methadone Screen Ur Barbiturates Screen Ur Phencyclidine Scrn Ur Amphetamine Screen U Benzodiazepines Scrn Urine Cocaine Screen U Cannabinoids Screen Syphilis IgG/IgM Ab Hep Bs Antigen HIV 1&2 Ab/P24 Ag 4thGn Rubella IgG Antibody Blood Type Antibody Screen 10/16/24 10/16/24 10/16/24 02:37 02:37 02:37 WBC RBC Hgb Hct MCV MCH MCHC RDW Plt Count Cancelled MPV Cancelled Cancelled Immature Gran % (Auto) Cancelled Cancelled Neut % (Auto) Cancelled Lymph % (Auto) [place] % (Auto) Eos % (Auto) Baso % (Auto) Lymph # (Auto) [place] # (Auto) Eos # (Auto) Baso # (Auto) Abs Immat Gran (auto) Absolute Neuts (auto) Absolute Nucleated RBC Nucleated RBC % % Immature Plt Fraction PT INR APTT Fibrinogen D-Dimer Sodium Potassium Chloride Carbon Dioxide Anion Gap BUN Creatinine Estim Creat Clear Calc Estimated GFR Glucose Uric Acid Calcium Magnesium Total Bilirubin AST ALT Alkaline Phosphatase Total Protein Albumin Urine Opiates Screen Urine Methadone Screen Ur Barbiturates Screen Ur Phencyclidine Scrn Ur Amphetamine Screen U Benzodiazepines Scrn Urine Cocaine Screen U Cannabinoids Screen Syphilis IgG/IgM Ab Hep Bs Antigen HIV 1&2 Ab/P24 Ag 4thGn Rubella IgG Antibody Blood Type Antibody Screen 10/16/24 10/16/24 10/16/24 02:37 02:37 02:37 WBC RBC Hgb Hct MCV MCH MCHC RDW Plt Count MPV Immature Gran % (Auto) Neut % (Auto) Cancelled Lymph % (Auto) Cancelled Cancelled [place] % (Auto) Cancelled Cancelled Eos % (Auto) Cancelled Baso % (Auto) Lymph # (Auto) [place] # (Auto) Eos # (Auto) Baso # (Auto) Abs Immat Gran (auto) Absolute Neuts (auto) Absolute Nucleated RBC Nucleated RBC % % Immature Plt Fraction PT INR APTT Fibrinogen D-Dimer Sodium Potassium Chloride Carbon Dioxide Anion Gap BUN Creatinine Estim Creat Clear Calc Estimated GFR Glucose Uric Acid Calcium Magnesium Total Bilirubin AST ALT Alkaline Phosphatase Total Protein Albumin Urine Opiates Screen Urine Methadone Screen Ur Barbiturates Screen Ur Phencyclidine Scrn Ur Amphetamine Screen U Benzodiazepines Scrn Urine Cocaine Screen U Cannabinoids Screen Syphilis IgG/IgM Ab Hep Bs Antigen HIV 1&2 Ab/P24 Ag 4thGn Rubella IgG Antibody Blood Type Antibody Screen 10/16/24 10/16/24 10/16/24 02:37 02:37 02:37 WBC RBC Hgb Hct MCV MCH MCHC RDW Plt Count MPV Immature Gran % (Auto) Neut % (Auto) Lymph % (Auto) [place] % (Auto) Eos % (Auto) Cancelled Baso % (Auto) Cancelled Cancelled Lymph # (Auto) Cancelled Cancelled [place] # (Auto) Cancelled Eos # (Auto) Baso # (Auto) Abs Immat Gran (auto) Absolute Neuts (auto) Absolute Nucleated RBC Nucleated RBC % % Immature Plt Fraction PT INR APTT Fibrinogen D-Dimer Sodium Potassium Chloride Carbon Dioxide Anion Gap BUN Creatinine Estim Creat Clear Calc Estimated GFR Glucose Uric Acid Calcium Magnesium Total Bilirubin AST ALT Alkaline Phosphatase Total Protein Albumin Urine Opiates Screen Urine Methadone Screen Ur Barbiturates Screen Ur Phencyclidine Scrn Ur Amphetamine Screen U Benzodiazepines Scrn Urine Cocaine Screen U Cannabinoids Screen Syphilis IgG/IgM Ab Hep Bs Antigen HIV 1&2 Ab/P24 Ag 4thGn Rubella IgG Antibody Blood Type Antibody Screen 02/10/16/24 10/16/24 02:37 02:37 02:37 WBC RBC Hgb Hct MCV MCH MCHC RDW Plt Count MPV Immature Gran % (Auto) Neut % (Auto) Lymph % (Auto) [place] % (Auto) Eos % (Auto) Baso % (Auto) Lymph # (Auto) [place] # (Auto) Cancelled Eos # (Auto) Cancelled Cancelled Baso # (Auto) Cancelled Cancelled Abs Immat Gran (auto) Cancelled Absolute Neuts (auto) Absolute Nucleated RBC Nucleated RBC % % Immature Plt Fraction PT INR APTT Fibrinogen D-Dimer Sodium Potassium Chloride Carbon Dioxide Anion Gap BUN Creatinine Estim Creat Clear Calc Estimated GFR Glucose Uric Acid Calcium Magnesium Total Bilirubin AST ALT Alkaline Phosphatase Total Protein Albumin Urine Opiates Screen Urine Methadone Screen Ur Barbiturates Screen Ur Phencyclidine Scrn Ur Amphetamine Screen U Benzodiazepines Scrn Urine Cocaine Screen U Cannabinoids Screen Syphilis IgG/IgM Ab Hep Bs Antigen HIV 1&2 Ab/P24 Ag 4thGn Rubella IgG Antibody Blood Type Antibody Screen 10/16/24 10/16/24 10/16/24 02:37 02:37 02:37 WBC RBC Hgb Hct MCV MCH MCHC RDW Plt Count MPV Immature Gran % (Auto) Neut % (Auto) Lymph % (Auto) [place] % (Auto) Eos % (Auto) Baso % (Auto) Lymph # (Auto) [place] # (Auto) Eos # (Auto) Baso # (Auto) Abs Immat Gran (auto) Cancelled Absolute Neuts (auto) Cancelled Cancelled Absolute Nucleated RBC Cancelled Cancelled Nucleated RBC % Cancelled % Immature Plt Fraction PT INR APTT Fibrinogen D-Dimer Sodium Potassium Chloride Carbon Dioxide Anion Gap BUN Creatinine Estim Creat Clear Calc Estimated GFR Glucose Uric Acid Calcium Magnesium Total Bilirubin AST ALT Alkaline Phosphatase Total Protein Albumin Urine Opiates Screen Urine Methadone Screen Ur Barbiturates Screen Ur Phencyclidine Scrn Ur Amphetamine Screen U Benzodiazepines Scrn Urine Cocaine Screen U Cannabinoids Screen Syphilis IgG/IgM Ab Hep Bs Antigen HIV 1&2 Ab/P24 Ag 4thGn Rubella IgG Antibody Blood Type Antibody Screen 10/16/24 10/16/24 02:37 02:37 WBC RBC Hgb Hct MCV MCH MCHC RDW Plt Count MPV Immature Gran % (Auto) Neut % (Auto) Lymph % (Auto) [place] % (Auto) Eos % (Auto) Baso % (Auto) Lymph # (Auto) [place] # (Auto) Eos # (Auto) Baso # (Auto) Abs Immat Gran (auto) Absolute Neuts (auto) Absolute Nucleated RBC Nucleated RBC % Cancelled % Immature Plt Fraction Cancelled Cancelled PT INR APTT Fibrinogen D-Dimer Sodium Cancelled Potassium Cancelled Chloride Cancelled Carbon Dioxide Cancelled Anion Gap Cancelled BUN Cancelled Creatinine Cancelled Estim Creat Clear Calc Cancelled Estimated GFR Cancelled Glucose Cancelled Uric Acid Cancelled Calcium Cancelled Magnesium Total Bilirubin Cancelled AST Cancelled ALT Cancelled Alkaline Phosphatase Cancelled Total Protein Cancelled Albumin Cancelled Urine Opiates Screen Positive A Urine Methadone Screen Negative Ur Barbiturates Screen Negative Ur Phencyclidine Scrn Negative Ur Amphetamine Screen Positive A U Benzodiazepines Scrn Positive A Urine Cocaine Screen Negative U Cannabinoids Screen Negative Syphilis IgG/IgM Ab Hep Bs Antigen HIV 1&2 Ab/P24 Ag 4thGn Rubella IgG Antibody Blood Type Antibody Screen Post-procedural complaints: none Patient Feedback: Patient satisfied with anesthetic care.
[2024-10-16] MEDS: DOCUSATE SODIUM 100 MG CAPSULE PO ×2 (10:47→16:59)
[2024-10-16] MEDS: ACETAMINOPHEN 500 MG TABLET 1000 MG PO ×3 (10:47→22:53)
[2024-10-16] MEDS: SIMETHICONE 80 MG TAB.CHEW PO ×3 (10:48→16:59)
[2024-10-16 11:04] LABS: Basophils Absolute Auto 0.1 K/mm3 (0.0-0.1); Basophils Percent Auto 0.5 % (0.2-1.2); Eosinophils Absolute Auto 0.2 K/mm3 (0-0.3); Eosinophils Percent Auto 1.1 % (0-4.4); Hematocrit 27.1 % (37.0-47.0); Immature Granulocyte Absolute 0.12 K/mm3 (0.00-0.031); Immature Granulocyte Percent A 0.8 % (0-0.5); Lymphocytes Percent Auto 11.4 % (18.3-44.2); Mean Corpuscular HGB Conc 33.2 g/dl (32-36); Mean Corpuscular Volume 81.4 fl (80-100); Mean Platelet Volume 10.3 fl (7.4-10.4); Neutrophils Absolute Auto 12.7 K/mm3 (1.3-6.7); Neutrophils Percent Auto 80.2 % (45.5-73.1); Platelet Count Result 266 k/mm3 (150-375); Red Blood Count 3.33 M/mm3 (4.2-5.4); Red Cell Distribution Width 13.8 % (11.5-14.5); White Blood Count 15.8 K/mm3 (4.5-10.0)
--- NOTE | 2024-10-16 11:11 | PCCCNOTE ---
Met with mother and OB manager talent acquisition Arvind in room. Consult received for no care, +Meth, +Benzodiazepine and +Opiates. KYLER Rivers reported mother was wanting to leave [place], but at this time is now staying and receiving dilaudid. Mother reported she is interested in getting help. Mother was given resources for substance abuse and referred to CHARLIE. CHARLIE/Alexis to follow up with mother. Mother lives home alone in a one bedroom in [place], [place]. Mother did not voice name of father or if he is the father of her other children. Mother reported DCFS is involved with her other children due to substance uses as well - she has 3 other children not in her care (1-Manda- age 15; 2-Loraina- age 10; and 3-[place] age 5 (up for adoption). Bárbara reported they are in her grandparents care. Patient's mother was at bedside previously, but got upset and has left. Patient was encouraged to stay after having a and needing to heal. RN reported patient was not bonding with baby and did not want baby boy in the room. The second visit, baby boy was present in the room and mother was holding. Patient reported when she was a young girl she got in an accident then got addicted to drugs. Mother did not know she was until about a month and a 1/2 ago and tried to wean herself off. Mother sees Lizabeth aHro in [place] through [facility] [phone] for Suboxone (a program for substance use). Mother reported she was on control thus did not know she was . Mother stated she works midnights and does Meth to help keep her awake. Reports she does not do Fentanyl. Mother aware resident care coordinator obligated to contact [facility]. Called [facility] and spoke with Melia social worker school who wrote down report and mother aware [facility] to follow up case#[id number]. Awaiting DCFS' determination. KYLER Rivers and Cake Wringer Arvind ngo.
[2024-10-16] MEDS: NICOTINE (*PBKC) 21 MG PATCH 1 PATCH TRANSDERM (12:46)
--- NOTE | 2024-10-16 12:58 | PCCCNOTE ---
Received phone call from [facility] worker Summer Browne [phone] who reported she will meet with mother today 10/16 and reported she is already working on placement for baby. Awaiting more communication from [facility] regarding placement of baby. Following.
--- NOTE | 2024-10-16 14:24 | PCCCNOTE ---
[facility] FORM #5 faxed to [phone]. Spoke KYLER Rivers who is aware respiratory care practitioner is waiting on Summer Browne director of it operations on further up plan. Per Summer Browne [phone] child support case officer with [employer], they have taken protective custody of baby lion Philip. They will have court on Thursday 10/19, but unsure of time. Summer reported if baby is medically ready to be discharged this or Saturday to call her at [phone]. Summer provided nurse with the 906 form/regarding protective placement for baby's chart and confirmed she would notify KYLER Rivers of the above information. Baby will remain at hospital until medically stable then will go in the care of [facility].
--- NOTE | 2024-10-16 15:00 | PC.NURSE ---
DCFS: November November informed this RN that per her stewarding supervisor rooming in of the was up to our discretion. After this RN spoke with both nurse senior account manager and nurse director, it was decided that patient could not have in room unless another person was in the room with patient to assist. November gave this RN a form that needs to be completed by mingler operator on day of discharge and faxed over to November. Form was placed on mothers chart for completion. This RN passed along this information to uncoming RN.
[2024-10-16] MEDS: POLYSACCHARIDE IRON COMPLEX 150 MG CAPSULE PO (16:59)
[2024-10-16] MEDS: LABETALOL HCL INJ 100 MG/20 ML VIAL 20 MG IV PUSH (18:22)
[2024-10-16] MEDS: HYDROmorphone HCL (*CRX) 2 MG TABLET PO ×2 (18:57→22:54)
[2024-10-16 18:58] LABS: Basophils Absolute Auto 0.1 K/mm3 (0.0-0.1); Basophils Percent Auto 0.5 % (0.2-1.2); Eosinophils Absolute Auto 0.2 K/mm3 (0-0.3); Eosinophils Percent Auto 1.3 % (0-4.4); Hematocrit 26.3 % (37.0-47.0); Hemoglobin 8.5 g/dL (12.0-15.0); Immature Granulocyte Absolute 0.12 K/mm3 (0.00-0.031); Immature Granulocyte Percent A 0.8 % (0-0.5); Lymphocytes Absolute Auto 2.12 K/mm3 (0.9-3.2); Lymphocytes Percent Auto 13.9 % (18.3-44.2); Mean Corpuscular HGB Conc 32.3 g/dl (32-36); Mean Corpuscular Hemoglobin 26.9 pg (26-34); Mean Corpuscular Volume 83.2 fl (80-100); Mean Platelet Volume 10.5 fl (7.4-10.4); Monocytes Absolute Auto 0.9 K/mm3 (0.1-0.6); Neutrophils Absolute Auto 11.8 K/mm3 (1.3-6.7); Neutrophils Percent Auto 77.5 % (45.5-73.1); Platelet Count Result 273 k/mm3 (150-375); Red Blood Count 3.16 M/mm3 (4.2-5.4); Red Cell Distribution Width 13.9 % (11.5-14.5); White Blood Count 15.2 K/mm3 (4.5-10.0)
[2024-10-16 19:15] LABS: Alanine Aminotransferase 10 U/L (6-35); Albumin Level 2.6 g/dL (3.5-5.1); Alkaline Phosphatase 227 U/L (38-126); Anion Gap 4 mmol/L (4-12); Aspartate Amino Transferase 28 U/L (14-36); Bilirubin,Total 0.3 mg/dL (0.2-1.3); Blood Urea Nitrogen 5 mg/dL (7-17); Calcium 6.7 mg/dL (8.4-10.2); Carbon Dioxide 24 mmol/L (22-30); Chloride 105 mmol/L (98-107); Estimated CRCL calculation 137 ml/min; Estimated Glomerular Filt Rate > 60; Glucose 132 mg/dL (65-110); Potassium 3.6 mmol/L (3.4-5.0); Sodium 133 mmol/L (137-145); Uric Acid 4.3 mg/dL (2.5-7.5)
[2024-10-16] MEDS: IBUPROFEN 600 MG TABLET PO (22:53)
[2024-10-16] MEDS: LABETALOL HCL 100 MG TABLET 200 MG PO (22:53)
[2024-10-16] MEDS: ZOLPIDEM TARTRATE (*CRX) 5 MG TABLET PO (23:00)
[2024-10-16] MEDS: LORazepam INJ (*CRX) 2 MG/ML VIAL 1 MG IV PUSH (23:15)
[2024-10-17] VITALS (8 sets, daily range): BP systolic 133–154; BP diastolic 84–105; PULSE 82–116; RESP 16–20; TEMP 36.7–37; O2SAT 97–99
--- NOTE | 2024-10-17 00:10 | PC.NURSE ---
2049- This RN informed Dr. Enriquez of pts PIH lab values and of most recent BP 134/95, no new orders given at this time.
--- NOTE | 2024-10-17 02:02 | PC.NURSE ---
0030- Pt states that she has been up to void, did not call for assistance as instructed and did not measure. This RN instructed pt to measure next void before flushing or to leave in hat and call nurse. Pt agreed.
[2024-10-17] MEDS: LIDOCAINE 5% PATCH 1 PATCH TRANSDERM (04:00)
[2024-10-17] MEDS: IBUPROFEN 600 MG TABLET PO ×5 (04:27→23:19)
[2024-10-17] MEDS: HYDROmorphone HCL (*CRX) 2 MG TABLET PO ×5 (04:27→23:18)
[2024-10-17] MEDS: ACETAMINOPHEN 500 MG TABLET 1000 MG PO ×4 (04:27→23:19)
[2024-10-17] MEDS: LABETALOL HCL 100 MG TABLET 200 MG PO ×2 (08:24→20:53)
[2024-10-17] MEDS: POLYSACCHARIDE IRON COMPLEX 150 MG CAPSULE PO ×2 (08:24→17:38)
[2024-10-17] MEDS: SIMETHICONE 80 MG TAB.CHEW PO ×3 (08:24→17:38)
[2024-10-17] MEDS: DOCUSATE SODIUM 100 MG CAPSULE PO ×2 (08:24→17:38)
--- NOTE | 2024-10-17 08:27 | PM.OBPNVD ---
OB - PN: Subj Subjective Date/time seen: 10/17/24 08:27 Interval history: Patient is resting comfortably in bed this morning. Patient was aroused from her sleep. She still reports some abdominal pain but states it is tolerable with medications. She denies any bleeding issues. Denies any scotoma, right upper quadrant pain, change in swelling. Patient has no concerns today Patient comments: no complaints, pain well controlled, tolerating diet and flatus present OB - PN: Obj Data Labs 10/16/24 18:39 10/16/24 18:39 Labs: Laboratory Results - last 24 hr 10/16/24 10/16/24 10/16/24 02:37 02:37 02:37 WBC Cancelled Cancelled RBC Cancelled Cancelled Hgb Cancelled Hct MCV MCH MCHC RDW Plt Count MPV Immature Gran % (Auto) Neut % (Auto) Lymph % (Auto) [place] % (Auto) Eos % (Auto) Baso % (Auto) Lymph # (Auto) [place] # (Auto) Eos # (Auto) Baso # (Auto) Abs Immat Gran (auto) Absolute Neuts (auto) Absolute Nucleated RBC Nucleated RBC % % Immature Plt Fraction Sodium Potassium Chloride Carbon Dioxide Anion Gap BUN Creatinine Estim Creat Clear Calc Estimated GFR Glucose Uric Acid Calcium Total Bilirubin AST ALT Alkaline Phosphatase Total Protein Albumin 10/16/24 10/16/24 10/16/24 02:37 02:37 02:37 WBC RBC Hgb Cancelled Hct Cancelled Cancelled MCV Cancelled Cancelled MCH Cancelled MCHC RDW Plt Count MPV Immature Gran % (Auto) Neut % (Auto) Lymph % (Auto) [place] % (Auto) Eos % (Auto) Baso % (Auto) Lymph # (Auto) [place] # (Auto) Eos # (Auto) Baso # (Auto) Abs Immat Gran (auto) Absolute Neuts (auto) Absolute Nucleated RBC Nucleated RBC % % Immature Plt Fraction Sodium Potassium Chloride Carbon Dioxide Anion Gap BUN Creatinine Estim Creat Clear Calc Estimated GFR Glucose Uric Acid Calcium Total Bilirubin AST ALT Alkaline Phosphatase Total Protein Albumin 10/16/24 10/16/24 10/16/24 02:37 02:37 02:37 WBC RBC Hgb Hct MCV MCH Cancelled MCHC Cancelled Cancelled RDW Cancelled Cancelled Plt Count Cancelled MPV Immature Gran % (Auto) Neut % (Auto) Lymph % (Auto) [place] % (Auto) Eos % (Auto) Baso % (Auto) Lymph # (Auto) [place] # (Auto) Eos # (Auto) Baso # (Auto) Abs Immat Gran (auto) Absolute Neuts (auto) Absolute Nucleated RBC Nucleated RBC % % Immature Plt Fraction Sodium Potassium Chloride Carbon Dioxide Anion Gap BUN Creatinine Estim Creat Clear Calc Estimated GFR Glucose Uric Acid Calcium Total Bilirubin AST ALT Alkaline Phosphatase Total Protein Albumin 10/16/24 10/16/24 10/16/24 02:37 02:37 02:37 WBC RBC Hgb Hct MCV MCH MCHC RDW Plt Count Cancelled MPV Cancelled Cancelled Immature Gran % (Auto) Cancelled Cancelled Neut % (Auto) Cancelled Lymph % (Auto) [place] % (Auto) Eos % (Auto) Baso % (Auto) Lymph # (Auto) [place] # (Auto) Eos # (Auto) Baso # (Auto) Abs Immat Gran (auto) Absolute Neuts (auto) Absolute Nucleated RBC Nucleated RBC % % Immature Plt Fraction Sodium Potassium Chloride Carbon Dioxide Anion Gap BUN Creatinine Estim Creat Clear Calc Estimated GFR Glucose Uric Acid Calcium Total Bilirubin AST ALT Alkaline Phosphatase Total Protein Albumin 10/16/24 10/16/24 10/16/24 02:37 02:37 02:37 WBC RBC Hgb Hct MCV MCH MCHC RDW Plt Count MPV Immature Gran % (Auto) Neut % (Auto) Cancelled Lymph % (Auto) Cancelled Cancelled [place] % (Auto) Cancelled Cancelled Eos % (Auto) Cancelled Baso % (Auto) Lymph # (Auto) [place] # (Auto) Eos # (Auto) Baso # (Auto) Abs Immat Gran (auto) Absolute Neuts (auto) Absolute Nucleated RBC Nucleated RBC % % Immature Plt Fraction Sodium Potassium Chloride Carbon Dioxide Anion Gap BUN Creatinine Estim Creat Clear Calc Estimated GFR Glucose Uric Acid Calcium Total Bilirubin AST ALT Alkaline Phosphatase Total Protein Albumin 10/16/24 10/16/24 10/16/24 02:37 02:37 02:37 WBC RBC Hgb Hct MCV MCH MCHC RDW Plt Count MPV Immature Gran % (Auto) Neut % (Auto) Lymph % (Auto) [place] % (Auto) Eos % (Auto) Cancelled Baso % (Auto) Cancelled Cancelled Lymph # (Auto) Cancelled Cancelled [place] # (Auto) Cancelled Eos # (Auto) Baso # (Auto) Abs Immat Gran (auto) Absolute Neuts (auto) Absolute Nucleated RBC Nucleated RBC % % Immature Plt Fraction Sodium Potassium Chloride Carbon Dioxide Anion Gap BUN Creatinine Estim Creat Clear Calc Estimated GFR Glucose Uric Acid Calcium Total Bilirubin AST ALT Alkaline Phosphatase Total Protein Albumin 10/16/24 10/16/24 10/16/24 02:37 02:37 02:37 WBC RBC Hgb Hct MCV MCH MCHC RDW Plt Count MPV Immature Gran % (Auto) Neut % (Auto) Lymph % (Auto) [place] % (Auto) Eos % (Auto) Baso % (Auto) Lymph # (Auto) [place] # (Auto) Cancelled Eos # (Auto) Cancelled Cancelled Baso # (Auto) Cancelled Cancelled Abs Immat Gran (auto) Cancelled Absolute Neuts (auto) Absolute Nucleated RBC Nucleated RBC % % Immature Plt Fraction Sodium Potassium Chloride Carbon Dioxide Anion Gap BUN Creatinine Estim Creat Clear Calc Estimated GFR Glucose Uric Acid Calcium Total Bilirubin AST ALT Alkaline Phosphatase Total Protein Albumin 10/16/24 10/16/24 10/16/24 02:37 02:37 02:37 WBC RBC Hgb Hct MCV MCH MCHC RDW Plt Count MPV Immature Gran % (Auto) Neut % (Auto) Lymph % (Auto) [place] % (Auto) Eos % (Auto) Baso % (Auto) Lymph # (Auto) [place] # (Auto) Eos # (Auto) Baso # (Auto) Abs Immat Gran (auto) Cancelled Absolute Neuts (auto) Cancelled Cancelled Absolute Nucleated RBC Cancelled Cancelled Nucleated RBC % Cancelled % Immature Plt Fraction Sodium Potassium Chloride Carbon Dioxide Anion Gap BUN Creatinine Estim Creat Clear Calc Estimated GFR Glucose Uric Acid Calcium Total Bilirubin AST ALT Alkaline Phosphatase Total Protein Albumin 10/16/24 10/16/24 10/16/24 02:37 02:37 10:56 WBC 15.8 H RBC 3.33 L Hgb 9.0 L Hct 27.1 L MCV 81.4 MCH 27.0 MCHC 33.2 RDW 13.8 Plt Count 266 MPV 10.3 Immature Gran % (Auto) 0.8 H Neut % (Auto) 80.2 H Lymph % (Auto) 11.4 L [place] % (Auto) 6.0 Eos % (Auto) 1.1 Baso % (Auto) 0.5 Lymph # (Auto) 1.80 [place] # (Auto) 1.0 H Eos # (Auto) 0.2 Baso # (Auto) 0.1 Abs Immat Gran (auto) 0.12 H Absolute Neuts (auto) 12.7 H Absolute Nucleated RBC 0.000 Nucleated RBC % Cancelled 0.0 % Immature Plt Fraction Cancelled Cancelled Sodium Cancelled Potassium Cancelled Chloride Cancelled Carbon Dioxide Cancelled Anion Gap Cancelled BUN Cancelled Creatinine Cancelled Estim Creat Clear Calc Cancelled Estimated GFR Cancelled Glucose Cancelled Uric Acid Cancelled Calcium Cancelled Total Bilirubin Cancelled AST Cancelled ALT Cancelled Alkaline Phosphatase Cancelled Total Protein Cancelled Albumin Cancelled 10/16/24 18:39 WBC 15.2 H RBC 3.16 L Hgb 8.5 L Hct 26.3 L MCV 83.2 MCH 26.9 MCHC 32.3 RDW 13.9 Plt Count 273 MPV 10.5 H Immature Gran % (Auto) 0.8 H Neut % (Auto) 77.5 H Lymph % (Auto) 13.9 L [place] % (Auto) 6.0 Eos % (Auto) 1.3 Baso % (Auto) 0.5 Lymph # (Auto) 2.12 [place] # (Auto) 0.9 H Eos # (Auto) 0.2 Baso # (Auto) 0.1 Abs Immat Gran (auto) 0.12 H Absolute Neuts (auto) 11.8 H Absolute Nucleated RBC 0.000 Nucleated RBC % 0.0 % Immature Plt Fraction Sodium 133 L Potassium 3.6 Chloride 105 Carbon Dioxide 24 Anion Gap 4 BUN 5 L Creatinine 0.50 L Estim Creat Clear Calc 137 Estimated GFR > 60 Glucose 132 H Uric Acid 4.3 Calcium 6.7 L Total Bilirubin 0.3 AST 28 ALT 10 Alkaline Phosphatase 227 H Total Protein 5.0 L Albumin 2.6 L OB - PN A/P Assessment and Plan (1) No care in current : Code(s): O09.30 - Supervision of with insufficient care, unspecified trimester Status: Acute (2) Gestational hypertension: Code(s): O13.9 - Gestational [-induced] hypertension without significant proteinuria, unspecified trimester Status: Acute Assessment and Plan: BP continue to be labile s/p magnesium will continue PO labetalol continue to monitor BP (3) Drug abuse: Code(s): F19.10 - Other psychoactive substance abuse, uncomplicated Status: Acute Plan Plan: routine care Comments: patient doing well H/H stable afebrile incision C/D/I solorzano removed, voiding spontaneously continue routine post op care Time Spent With Patient Time: Total time spent is greater than 50% in coordination of care (as documented) at patient's floor/unit and/or counseling patient: Time with patient: less than 15 minutes Review of Systems Constitutional: Constitutional: Reports no additional constitutional complaints Cardiovascular: Cardiovascular: Reports no additional cardiovascular complaints Respiratory: Respiratory: Reports no additional respiratory complaints Gastrointestinal: Gastrointestinal: Reports no additional gastrointestinal complaints Genitourinary: Genitourinary: Reports no additional female genitourinary complaints Exam Const: General: comfortable and no acute distress Resp: Effort & Inspection: normal respiratory effort Auscultation: clear to auscultation bilaterally Cardio: Rate: regular rate GI: GI Palp: Yes Soft to palpation, Yes Tenderness to palpation present (GI) (around incision ) and No Guarding due to palpation present (GI) Auscultation: normal bowel sounds Other: incision C/D/I, covered with Dermabond Psych: Appearance: grossly normal Mental Status: mental status grossly normal Affect: normal affect
[2024-10-17] MEDS: NICOTINE (*PBKC) 21 MG PATCH 1 PATCH TRANSDERM (19:30)
[2024-10-17] MEDS: LORazepam (*CRX) 1 MG TABLET PO (19:30)
[2024-10-17] MEDS: LORazepam (*CRX) 1 MG TABLET (19:41)
[2024-10-17] MEDS: ZOLPIDEM TARTRATE (*CRX) 5 MG TABLET PO (23:19)
[2024-10-18 00:15] VITALS: BP 157/91; PULSE 108; RESP 16; TEMP 36.6; O2SAT 97
[2024-10-18] MEDS: HYDROmorphone HCL (*CRX) 2 MG TABLET PO ×2 (03:53→08:04)
[2024-10-18 05:09] VITALS: BP 153/98; PULSE 92; RESP 16; TEMP 36.9; O2SAT 97
[2024-10-18] MEDS: IBUPROFEN 600 MG TABLET PO (06:42)
[2024-10-18] MEDS: ACETAMINOPHEN 500 MG TABLET 1000 MG PO (06:42)
--- NOTE | 2024-10-18 07:45 | PM.OBDSVD ---
DS: Admitting Diagnosis Discharge Date 10/18/24 Admitting Diagnosis no care prior polysubstance abuse DS: Discharge Diagnosis Discharge Diagnosis (1) Delivery by section: Status: Acute OB - DS: Summary OB Procedures : None OB Procedures Intrapartum: OB Procedures: : None Peripartum Data Infant Delivery Method: Section Procedures: Procedures Operation Date: 10/15/24 19:45 <No data on this case meets the specified criteria> complications: none Status at Discharge Functional status at discharge: independent ambulation Overall status at discharge: patient is progressing back to baseline Time Spent with Patient Time attestation: Total time spent providing and/or coordinating discharge services: Time spent: Less than 30 minutes Exam Const: General: comfortable and no acute distress Resp: Effort & Inspection: normal respiratory effort Auscultation: clear to auscultation bilaterally Cardio: Rate: regular rate GI: Inspection: non-distended GI Palp: Yes Soft to palpation, No Firmness to palpation present (GI), Yes Tenderness to palpation present (GI) (mild tenderness over incision ) and No Guarding due to palpation present (GI) Auscultation: normal bowel sounds Psych: Appearance: grossly normal Mental Status: mental status grossly normal Discharge Plan Discharge Attending physician on discharge: Sadiq Noe Discharging Clinician: Duy Enriquez Activity: as tolerated and pelvic rest Diet: regular Patient Instructions: (DC) Patient Language: Estonian Follow-up/Referrals: Sadiq Noe MD [Physician] - Discharge Medications: New acetaminophen 500 mg tablet 500 mg PO Q6H PRN (Reason: pain) Qty: 30 0RF ibuprofen 600 mg tablet 600 mg PO Q6H PRN (Reason: pain) Qty: 30 0RF Continued buprenorphine-naloxone 8-2 mg film 1 film sublingual TID gabapentin 300 mg capsule 300 mg PO TID lorazepam 1 mg tablet 1 mg PO Q12H PRN (Reason: anxiety) Date of admission: 10/15/24 18:32 Primary Care Provider: PHYSICIAN,[employer] Admitting Provider: Sadiq Noe Attending physician on admission: Sadiq Noe
[2024-10-18 08:00] VITALS: BP 156/107; PULSE 92; RESP 18; TEMP 36.7
[2024-10-18] MEDS: SIMETHICONE 80 MG TAB.CHEW PO (08:04)
[2024-10-18] MEDS: POLYSACCHARIDE IRON COMPLEX 150 MG CAPSULE PO (08:04)
[2024-10-18] MEDS: DOCUSATE SODIUM 100 MG CAPSULE PO (08:04)
[2024-10-18 08:05] VITALS: PULSE 92
[2024-10-18] MEDS: LABETALOL HCL 100 MG TABLET 200 MG PO (08:05)
== END 2024-10-18 10:00 | disposition home or self-care (01) | DRG 540 ==
LOC: ANHLDR 20:21 → ANHOB2 10-16 13:41 → ANHLDR 10-20 13:54 → ANHOB2 10-20 13:54
PROVIDERS: Admitting Provider Obstetrics & Gynecology; Visit Provider Student in an Organized Health Care Education/Training Program
PROC: 10D00Z1 Extraction of Products of Conception, Low, Open Approach (ICD-10-PCS; CPT 59514; principal; 2024-10-15 19:45)
DX: O36.8330 Maternal care for abnormalities of the fetal heart rate or rhythm, third trimester, not applicable or unspecified (principal); O34.211 Maternal care for low transverse scar from previous cesarean delivery; Z37.0 Single live birth; Z3A.38 38 weeks gestation of pregnancy; O77.0 Labor and delivery complicated by meconium in amniotic fluid; O13.4 Gestational [pregnancy-induced] hypertension without significant proteinuria, complicating childbirth
CPT/HCPCS: 36415; 80053; 80307; 83735; 84112; 84550; 85025; 85027; 85380; 85384; 85730; 86593; 86703; 86762; 86850; 86900; 86901; 87340; 88307; A9270; G0432; J0330; J0690; J1171; J1885; J2060; J2274; J2405; J2590; J2704; J3010; J3475; J7120